=== PATIENT | male | born 1990 | race Caucasian/White ===

== ENCOUNTER 2021-05-29 21:34 | Emergency (ER) | payer OTHER ==
[2021-05-29] MEDS ORDERED: Ketorolac 10 MG Tab PO ONE (21:35)
[2021-05-29] MEDS ORDERED: Acetaminophen/HYDROcodone 325-10 MG Tab PO ONE (21:35)
[2021-05-29] MEDS ORDERED: Ketorolac 30 MG/ML SDV IM ONE (22:04)
[2021-05-29] MEDS ORDERED: Orphenadrine 60 MG/2 ML Inj IM ONE (22:04)
--- NOTE | 2021-05-29 22:11 | EDM.PDOC ---
ED HPI GENERAL MEDICAL PROBLEM - General Chief Complaint: Back Pain or Injury Stated Complaint: BACK INJURY Time Seen by Provider: 05/29/21 22:00 Source of Information: Reports: Patient History Limitations: Reports: No Limitations - History of Present Illness INITIAL COMMENTS - FREE TEXT/NARRATIVE: This 30 yo male patient reports to the ED with lower back pain. The patient repo rts he slipped and fell on a curb while going to his room this evening. The patient reports increased pain since the time of the injury. The patient did take Excedrin with no symptom relief. The patient reports he had a previous back injury 2011, but had recovered from that injury. The patient was able to ambulate to the ED. Onset: Today Duration: Hour(s): Location: Reports: Back (lower back) Quality: Reports: Ache, Sharp, Stabbing Severity: Severe Improves with: Reports: Rest Worsens with: Reports: Movement Context: Reports: Activity Treatments MANAGER PROGRESSIVE CARE: Reports: NSAIDS Back Pain Score (Numeric/FACES): 10 - Related Data Allergies Allergy/AdvReac Type Severity Reaction Status Date / Time cat dander Allergy Difficulty Verified 05/29/21 21:56 Breathing Home Meds: Home Meds Aspirin/Acetaminophen/Caffeine [Excedrin Extra Strength Caplet] 2 tab 05/29/21 [History] Past Medical History HEENT History: Reports: None Cardiovascular History: Reports: None Respiratory History: Reports: None Gastrointestinal History: Reports: None Genitourinary History: Reports: None Musculoskeletal History: Reports: Back Pain, Chronic Neurological History: Reports: None Psychiatric History: Reports: None Endocrine/Metabolic History: Reports: None Hematologic History: Reports: None Immunologic History: Reports: None Oncologic (Cancer) History: Reports: None Dermatologic History: Reports: None - Infectious Disease History Infectious Disease History: Reports: None - Past Surgical History Head Surgeries/Procedures: Reports: None Social & Family History - Family History Family Medical History: No Pertinent Family History - Tobacco Use Tobacco Use Status *Q: Current Every Day Tobacco User Years of Tobacco use: 13 Packs/Tins Daily: 0.5 - Caffeine Use Caffeine Use: Reports: Coffee, Energy Drinks - Recreational Drug Use Recreational Drug Use: No ED ROS GENERAL - Review of Systems Review Of Systems: Comprehensive ROS is negative, except as noted in HPI. ED EXAM,LOWER BACK PAIN/INJURY - Physical Exam Exam: See Below Exam Limited By: No Limitations General Appearance: Alert, WD/WN, Moderate Distress Eye Exam: Bilateral Eye: EOMI, Normal Inspection, PERRL Ears: Normal External Exam, Hearing Grossly Normal Nose: Normal Inspection, No Blood Throat/Mouth: Normal Lips, Normal Teeth, Normal Voice, No Airway Compromise Head: Atraumatic, Normocephalic Neck: Full Range of Motion Respiratory/Chest: No Respiratory Distress, Lungs Clear, Normal Breath Sounds, No Accessory Muscle Use, Chest Non-Tender Cardiovascular: Normal Peripheral Pulses, Regular Rate, Rhythm (Male) Exam: Deferred Rectal (Males) Exam: Deferred Back Exam: Decreased Range of Motion, Muscle Spasm (lower back), Paraspinal Tenderness (lower back ), Vertebral Tenderness (lower back) Extremities: Normal Inspection, Non-Tender Neurological: Alert, Normal Mood/Affect, CN II-XII Intact, Oriented x 3, Difficulty Walking (due to lower back pain). No: Saddle Anesthesia Psychiatric: Normal Affect, Normal Mood Skin Exam: Warm, Dry, Intact, Normal Color, No Rash Lymphatic: No Adenopathy Course - Vital Signs Last Recorded V/S: Last Vital Signs Temp 98.8 F 05/29/21 21:49 Pulse 102 H 05/29/21 21:49 Resp 16 05/29/21 21:49 BP 135/83 05/29/21 21:49 Pulse Ox 98 05/29/21 21:49 - Orders/Labs/Meds Meds: Medications Discontinued Medications Generic Name Dose Route Start Last Admin Trade Name Freq PRN Reason Stop Dose Admin Ketorolac Tromethamine 30 mg 05/29/21 22:04 Ketorolac 30 Mg/Ml Sdv IM 05/29/21 22:05 ONETIME ONE Orphenadrine Citrate 60 mg 05/29/21 22:04 Orphenadrine 60 Mg/2 Ml Inj IM 05/29/21 22:05 ONETIME ONE Departure - Departure Time of Disposition: 22:07 Disposition: Home, Self-Care 01 Condition: Fair Clinical Impression: Low back strain Qualifiers: Encounter type: initial encounter Qualified Code(s): S39.012A - Strain of muscle, fascia and tendon of lower back, initial encounter - Discharge Information *PRESCRIPTION DRUG MONITORING PROGRAM REVIEWED*: Not Applicable *COPY OF PRESCRIPTION DRUG MONITORING REPORT IN PATIENT MITRA: Not Applicable Instructions: Back Injury Prevention, Htub-[id number], Lumbar Strain Forms: ED Department Discharge Care Plan Goals: The patient was advised of the examination results during the visit. The patient was given injection of Toradol (30 mg) and Norflex (60 mg) while in the ED. The patient was discharged with Alexander (10/325) #2 to take 1 by mouth every 6 hours as needed for breakthrough pain and Toradol (10 mg) #2 to take 1 by mouth every 6 hours. The patient was also discharged with a script for Toradol (10 mg) #20 to take 1 by mouth every 6 hours and Flexeril (10 mg) #10 to take 1 by mouth at bedtime as needed. If the patient has any additional symptoms or concerns, the patient should either visit his primary care facility or return to the emergency department. Sepsis Event Note (ED) - Evaluation Sepsis Screening Result: No Definite Risk - Focused Exam Vital Signs: Vital Signs Temp Pulse Resp BP Pulse Ox 05/29/21 21:49 98.8 F 102 H 16 135/83 98
[2021-05-29] MEDS ORDERED: Ketorolac 10 MG Tab ONE (22:14)
[2021-05-29] MEDS ORDERED: Acetaminophen/HYDROcodone 325-10 MG Tab ONE (22:14)
== END 2021-05-29 22:25 | disposition home or self-care (01) ==
LOC: DL.ED 21:34
DX: S39.012A Strain of muscle, fascia and tendon of lower back, initial encounter (principal); Z91.09 Other allergy status, other than to drugs and biological substances; Z79.82 Long term (current) use of aspirin; Z72.0 Tobacco use; W01.0XXA Fall on same level from slipping, tripping and stumbling without subsequent striking against object, initial encounter
CPT/HCPCS: 96372; 99283; A9270-GY; J1885; J2360